=== PATIENT | female | born 1975 | race Two or more races ===

== ENCOUNTER 2018-06-10 19:10 | Emergency (ER) | payer OTHER ==
[~2018-06-10] VITALS: Ht 154.9 cm; Wt 86.2 kg
[~2018-06-10 19:10] MED LIST: PRENATAL1 TAB
== END 2018-06-10 21:34 | disposition home or self-care (01) ==
LOC: ER 19:10
DX: R10.2 Pelvic and perineal pain (principal)

== ENCOUNTER 2019-12-18 10:53 | Emergency (ER) | payer OTHER ==
[~2019-12-18] VITALS: Ht 157.5 cm; Wt 95.7 kg
[2019-12-18] MEDS ORDERED: TUSSIN DM SYRU118 ML PO (15:53)
[2019-12-18] MEDS ORDERED: TESSALON PERLE100 M1 PO (15:53)
== END 2019-12-18 16:39 | disposition home or self-care (01) ==
LOC: ER 10:53
DX: K29.00 Acute gastritis without bleeding (principal); Z03.818 Encounter for observation for suspected exposure to other biological agents ruled out